=== PATIENT | female | born 1980 | race Caucasian/White ===

== ENCOUNTER 2017-05-30 01:42 | Emergency (ER) | payer SELFPAY ==
[~2017-05-30] VITALS: Ht 172.7 cm; Wt 48.4 kg
[2017-05-30 04:24] VITALS: BP 112/68
== END 2017-05-30 04:25 | disposition home or self-care (01) ==
LOC: EME 01:42
DX: F31.9 Bipolar disorder, unspecified (principal); Z04.6 Encounter for general psychiatric examination, requested by authority; F41.9 Anxiety disorder, unspecified; Z87.891 Personal history of nicotine dependence
CPT/HCPCS: 90839; 99281; 99284